=== PATIENT | male | born 1950 | race Caucasian/White ===

== ENCOUNTER 2017-10-27 13:55 | Inpatient (IN) | payer MEDICARE ==
[~2017-10-27] VITALS: Ht 182.8 cm; Wt 110.4 kg
--- NOTE | ~2017-10-27 | EKG ---
[place], [place] ELECTROCARDIOGRAM REPORT NAME: ART DELGADO UNIT #: [id number] ROOM: 411 DOCTOR: TONYA CALDERÓN MD BIRTHDATE: [birth year] DOS: 10/27/2017 TIME: 1430 hours IMPRESSION: 1. Sinus rhythm. 2. Borderline left atrial enlargement. 3. Normal QT interval. TONYA CALDERÓN MD CM:EKGRPT:ELECTROCARDIOGRAM REPORT [id number] TONYA CALDERÓN MD
[~2017-10-27 13:55] MED LIST: ATOXIMETIN-B1 CAP PO; BUSPIRONE10 MG PO; QUINAPRIL HYDRO1 TA3 PO; QUINAPRIL10 MG PO
[2017-10-27 14:01] VITALS: BP 160/85
[2017-10-27 14:40] LABS: BASO # 0.1 10*3/uL (0.0-0.1); BASO % 0.8 % (0.0-1.0); EOS # 0.2 10*3/uL (0.0-0.4); EOS % 2.6 % (1.0-4.0); HEMATOCRIT 40.7 % (42.0-52.0); HEMOGLOBIN 13.8 g/dl (14.0-18.0); LYMPH # 0.9 10*3/uL (1.3-4.4); LYMPH % 14.5 % (27.0-41.0); MEAN CELL VOLUME 85.5 fl (80.0-94.0); MEAN CORPUSCULAR HGB CONC 33.9 g/dl (33.0-37.0); MEAN PLATELET VOLUME 9.2 fl (9.6-12.3); MONO # 0.7 10*3/uL (0.1-1.0); MONO % 11.6 % (3.0-9.0); NEUT # 4.3 10*3/uL (2.3-7.9); NEUT % 70.2 % (47.0-73.0); PLATELET COUNT AUTOMATED 259 10*3/uL (130-400); RED BLOOD COUNT 4.76 10*6/uL (4.50-5.90); RED CELL DISTRI WIDTH 12.4 % (0-14.5); WHITE BLOOD COUNT 6.1 10*3/uL (4.8-10.8)
[2017-10-27 14:47] LABS: INTERNATIONAL NORM RATIO 0.9 (2.0-3.5)
[2017-10-27 15:00] VITALS: BP 148/79
[2017-10-27 15:00] LABS: ALKALINE PHOSPHATASE 54 U/L (45-117); BUN 10 mg/dl (7-24); CHLORIDE 102 mmol/L (98-107); CREATININE 0.89 mg/dL (0.70-1.30); POTASSIUM 3.9 mmol/L (3.5-5.1); SGOT/AST 15 IU/L (3-35); SGPT/ALT 37 U/L (12-78); SODIUM 140 mmol/L (136-145); TOTAL PROTEIN 6.2 gm/dL (6.4-8.2)
[2017-10-27 15:03] LABS: TROPONIN I < 0.015 ng/ml (<0.045)
[2017-10-27 16:12] VITALS: BP 141/71
[2017-10-27] MEDS ORDERED: HYDR25T PO (16:16)
[2017-10-27] MEDS ORDERED: IODINE MC (16:42)
[2017-10-27] MEDS ORDERED: MASON NATURAL600 MG PO (16:43)
[2017-10-27] MEDS ORDERED: FLAX SEED OIL1000 M2 PO (16:44)
[2017-10-27 16:47] VITALS: BP 156/69
[2017-10-27 20:00] VITALS: BP 159/82
[2017-10-28] VITALS: BP 176/82
[2017-10-28 00:35] VITALS: BP 158/90
[2017-10-28 04:00] VITALS: BP 158/90
[2017-10-28 06:10] LABS: BASO # 0.1 10*3/uL (0.0-0.1); BASO % 0.8 % (0.0-1.0); EOS # 0.3 10*3/uL (0.0-0.4); EOS % 4.8 % (1.0-4.0); HEMATOCRIT 38.8 % (42.0-52.0); HEMOGLOBIN 13.2 g/dl (14.0-18.0); LYMPH % 33.4 % (27.0-41.0); MEAN CELL VOLUME 84.7 fl (80.0-94.0); MEAN CORPUSCULAR HGB 28.8 pg (27.0-31.0); MEAN PLATELET VOLUME 9.9 fl (9.6-12.3); MONO # 0.8 10*3/uL (0.1-1.0); MONO % 12.9 % (3.0-9.0); NEUT # 2.8 10*3/uL (2.3-7.9); NEUT % 47.9 % (47.0-73.0); PLATELET COUNT AUTOMATED 265 10*3/uL (130-400); RED BLOOD COUNT 4.58 10*6/uL (4.50-5.90); RED CELL DISTRI WIDTH 12.3 % (0-14.5); WHITE BLOOD COUNT 5.9 10*3/uL (4.8-10.8)
[2017-10-28 06:26] LABS: INTERNATIONAL NORM RATIO 0.9 (2.0-3.5)
[2017-10-28 06:42] LABS: ALBUMIN 2.8 gm/dl (3.1-4.5); ALKALINE PHOSPHATASE 48 U/L (45-117); BUN 8 mg/dl (7-24); CHLORIDE 102 mmol/L (98-107); CHOLESTEROL 167 mg/dL (<200); CREATININE 0.68 mg/dL (0.70-1.30); FREE T4 1.14 ng/dl (0.76-1.46); HDL CHOLESTEROL 62 mg/dl (40-60); LDL CHOLESTEROL 92 mg/dL (9-159); POTASSIUM 3.1 mmol/L (3.5-5.1); SGOT/AST 15 IU/L (3-35); SGPT/ALT 34 U/L (12-78); SODIUM 139 mmol/L (136-145); TRIGLYCERIDES 66 mg/dl (<150); VLDL CHOLESTEROL 13 mg/dL (6-40)
[2017-10-28 06:48] LABS: THYROID STIM HORMONE (HS) 0.023 uIU/ml (0.358-4.75)
[2017-10-28 07:33] LABS: VITAMIN D, 25-HYDROXY 36.2 ng/mL (30-100)
[2017-10-28 08:00] VITALS: BP 160/80
[2017-10-28] MEDS ORDERED: ASPIRIN325 M2 PO ×2 (11:20→11:26)
[2017-10-28] MEDS ORDERED: ATORVASTATIN CA80 M1 PO ×2 (11:22→11:26)
[2017-10-28 12:00] VITALS: BP 150/84
== END 2017-10-28 12:45 | disposition home or self-care (01) | DRG 69 ==
LOC: ED 13:55 → EDHOLD 15:47 → 4E 16:13
PROVIDERS: Hospitalist; Physician Assistant
DX: G45.9 Transient cerebral ischemic attack, unspecified (principal); D64.9 Anemia, unspecified; D72.821 Monocytosis (symptomatic); I10 Essential (primary) hypertension; F32.9 Major depressive disorder, single episode, unspecified; Z87.891 Personal history of nicotine dependence; Z91.048 Other nonmedicinal substance allergy status; Z79.899 Other long term (current) drug therapy; Z98.42 Cataract extraction status, left eye; Z98.41 Cataract extraction status, right eye; Z96.652 Presence of left artificial knee joint

== ENCOUNTER → 2017-10-30 | Outpatient (CLI) | payer MEDICARE ==
[~2017-10-30] MED LIST changes: +ASPIRIN325 M2 PO; +ATORVASTATIN CA80 M1 PO; +FLAX SEED OIL1000 M2 PO; +HYDR25T PO; +IODINE MC; +MASON NATURAL600 MG PO
== END | disposition home or self-care (01) ==
LOC: MRI 13:49
DX: I51.7 Cardiomegaly (principal)

== ENCOUNTER 2019-08-22 15:48 | Inpatient (IN) | payer MEDICARE ==
[~2019-08-22] VITALS: Ht 182.9 cm; Wt 110.4 kg
[2019-08-22 15:51] VITALS: BP 175/74
[2019-08-22 16:13] LABS: BASO # 0.1 10*3/uL (0.0-0.1); BASO % 0.9 % (0.0-1.0); EOS # 0.2 10*3/uL (0.0-0.4); EOS % 3.1 % (1.0-4.0); HEMATOCRIT 43.7 % (42.0-52.0); LYMPH # 1.3 10*3/uL (1.3-4.4); LYMPH % 22.8 % (27.0-41.0); MEAN CELL VOLUME 84.5 fl (80.0-94.0); MEAN CORPUSCULAR HGB CONC 34.3 g/dl (33.0-37.0); MEAN PLATELET VOLUME 9.4 fl (9.6-12.3); MONO # 0.5 10*3/uL (0.1-1.0); MONO % 8.7 % (3.0-9.0); NEUT # 3.5 10*3/uL (2.3-7.9); NEUT % 64.1 % (47.0-73.0); PLATELET COUNT AUTOMATED 247 10*3/uL (130-400); RED BLOOD COUNT 5.17 10*6/uL (4.50-5.90); RED CELL DISTRI WIDTH 12.6 % (0-14.5); WHITE BLOOD COUNT 5.5 10*3/uL (4.8-10.8)
[2019-08-22 16:24] LABS: ACT PARTIAL THROMBO TIME 25.4 SECONDS (20.0-32.1); INTERNATIONAL NORM RATIO 0.9 (2.0-3.5)
[2019-08-22 16:31] LABS: ALBUMIN 3.5 gm/dl (3.1-4.5); ALKALINE PHOSPHATASE 48 U/L (45-117); BUN 10 mg/dl (7-24); CHLORIDE 99 mmol/L (98-107); CREATININE 1.05 mg/dL (0.70-1.30); LIPASE 82 U/L (73-393); POTASSIUM 3.1 mmol/L (3.5-5.1); SGOT/AST 14 IU/L (3-35); SGPT/ALT 46 U/L (12-78); SODIUM 135 mmol/L (136-145); TOTAL PROTEIN 6.8 gm/dL (6.4-8.2)
[2019-08-22 16:42] LABS: TROPONIN I < 0.015 ng/ml (<0.045)
[2019-08-22 16:59] VITALS: BP 126/68
[2019-08-23] VITALS: BP 152/68
--- NOTE | 2019-08-23 | NUR ---
A 69, admitted to 4E, under the services of JANE Parra DO with a diagnosis of SYNCOPE. Chief complaint is FALL/SENT FROM PCP FOR HEART PROBLEMS. Patient arrived via stretcher from ER. Monitor applied. Initial assessment completed. Vital signs taken and recorded. JANE PARRA DO notified of admission to the unit. Orders received. See assessment for past medical history, medications and allergies. Patient and/or family oriented to unit. visitation policy reviewed. Clothing/patient valuable form completed. STEFAN MCGOWAN A
[2019-08-23] MEDS ORDERED: Synthroid,Levo25 MCG PO (00:30)
[2019-08-23] MEDS ORDERED: CARVEDILOL12.5 MG PO (00:31)
[2019-08-23] MEDS ORDERED: FUROSEMIDE40 MG PO (00:31)
--- NOTE | 2019-08-23 00:39 | NUR ---
SPOKE WITH DR. NEGRON IN REGARDS TO EXERCISE STRESS TEST AND PATIENT HAVING BAD KNEES AND MED REC BEING UP TO DATE. NO NEW ORDERS AT THIS TIME.
[2019-08-23] MEDS ORDERED: QUINAPRIL20 MG PO (03:35)
--- NOTE | 2019-08-23 06:17 | NUR ---
ART DELGADO [id number] Please refer to the physician's history and physical for past medical history, comorbid conditions, and allergies. Diagnosis: SYNCOPE Roverto Score: 21,LOW OR NO RISK WOUND DESCRIPTIONS: Wound Number: 1 Location of the wound: Left side of face proximal Type of wound: abrasion Thickness: Partial Size: 5.0cm x 0.1cm x 0.1cm Tunneling: none Undermining: none Sinus Tract: none Presence of Exudate: none Amount: none Color: red Odor: none Periwound Skin Appearance: Normal Wound edges: approximated Pain (associated with wound): none at time of assessment How does patient state this happened? pt stated that he hit it off the cabinet but was joking around saying he is going to blame it on his of many years Wound Number: 1 Location of the wound: Left side of face distal Type of wound: abrasion Thickness: Partial Size: 0.1cm x 1.8cm x 0.1cm Tunneling: none Undermining: none Sinus Tract: none Presence of Exudate: none Amount: none Color: red Odor: none Periwound Skin Appearance: Normal Wound edges: approximated Pain (associated with wound): none at time of assessment How does patient state this happened? pt stated that he hit it off the cabinet but was joking around saying he is going to blame it on his of many years Surface the patient is resting on: Isoflex SKIN PREVENTION RECOMMENDATION: 1. Pressure redistribution support surface as appropriate 2. Elevate heels 3. Remove boots/TEDS every shift and reapply 4. Head of bed 30 degrees as tolerated 5. Assess nutrition and hydration 6. Manage moisture 7. Avoid the use of containment devices while in bed 8. Use absorptive products on surfaces limit layers of linens on bed 9. Turn and reposition every 1-2 hours in bed and every 1 hour in chair as tolerated 10. Weight shifts every 15 minutes while up in chair 11. Offloading with pillows or device to keep heels elevated off bed 12. Monitor skin at least every shift 13. Inspect under medical devices twice a day WOUND TREATMENT RECOMMENDATIONS: Cleanse left side proximal and left side distal with nss and apply sureprep around the wound hydrogel to wound bed and cover with bandaid daily and prn for soiling.
[2019-08-23 06:49] LABS: BUN 10 mg/dl (7-24); CHLORIDE 105 mmol/L (98-107); CHOLESTEROL 205 mg/dL (<200); CREATININE 0.88 mg/dL (0.70-1.30); HDL CHOLESTEROL 67 mg/dl (40-60); LDL CHOLESTEROL 121 mg/dL (9-159); PHOSPHOROUS 3.6 mg/dL (2.5-4.9); POTASSIUM 3.2 mmol/L (3.5-5.1); SODIUM 141 mmol/L (136-145); TRIGLYCERIDES 85 mg/dl (<150); VLDL CHOLESTEROL 17 mg/dL (6-40)
[2019-08-23 06:52] LABS: BASO # 0.1 10*3/uL (0.0-0.1); EOS # 0.3 10*3/uL (0.0-0.4); EOS % 5.5 % (1.0-4.0); HEMATOCRIT 42.7 % (42.0-52.0); HEMOGLOBIN 14.5 g/dl (14.0-18.0); LYMPH # 1.8 10*3/uL (1.3-4.4); LYMPH % 29.4 % (27.0-41.0); MEAN CELL VOLUME 85.1 fl (80.0-94.0); MEAN CORPUSCULAR HGB 28.9 pg (27.0-31.0); MEAN PLATELET VOLUME 9.7 fl (9.6-12.3); MONO # 0.7 10*3/uL (0.1-1.0); MONO % 11.3 % (3.0-9.0); NEUT # 3.2 10*3/uL (2.3-7.9); NEUT % 52.3 % (47.0-73.0); PLATELET COUNT AUTOMATED 255 10*3/uL (130-400); RED BLOOD COUNT 5.02 10*6/uL (4.50-5.90); RED CELL DISTRI WIDTH 12.8 % (0-14.5); WHITE BLOOD COUNT 6.2 10*3/uL (4.8-10.8)
--- NOTE | 2019-08-23 07:46 | NUR ---
Shift chart check completed.
[2019-08-23 08:00] VITALS: BP 128/64
--- NOTE | 2019-08-23 08:28 | NUR ---
PHYSICAL THERAPY Screen received pt from home with syncopal episode please consult PT pending medical intervention and if pt's functional status is impaired/does not improve, thank you Michaela David PT
--- NOTE | 2019-08-23 08:30 | NUR ---
PT TO CARDIAC REHAB FOR ECHO & STRESS TEST
--- NOTE | 2019-08-23 09:00 | NUR ---
Grinder Chipper in to talk to patient. Patient states lives at home with . There are no steps in the home. Physician: shanelle Pharmacy: Home health services: none Patient's level of ADLs: INDEPENDENT Patient has working utilities: all working DME: none Follow-up physician's appointment after d/c: will be made by hospitalist nurse director upon discharge Does patient want to access PORTAL?: no Discharge plan discussed with patient, he lives at home with , he is independent in adls and ambulation, he states he will return home when medically stable and denies any home needs. ANTIONETTE ALEJANDRO
[2019-08-23 09:09] LABS: VITAMIN D, 25-HYDROXY 31.9 ng/mL (30-100)
--- NOTE | 2019-08-23 09:26 | NUR ---
Dr. Scherer notified of wound care recommendations.
--- NOTE | 2019-08-23 09:35 | NUR ---
Nursing screen received and chart reviewed. Patient hospitalized with increased dizziness, blacking out and hit head. Consider Occupational Therapy evaluation after medical management as indicated for d/c planning. Thank you Mary Ordaz OTR/l
--- NOTE | 2019-08-23 10:30 | NUR ---
INFORMED CONSENT OBTAINED FOR LEXISCAN NUCLEAR STRESS TEST WITH DR. RESTREPO. RESTING EKG NSR WITH A RESTING HR OF 72 WITH BP OF 140/74. LUNGS CLEAR WITH DIMINISHED BS WITH SPO2 OF 97% ON ROOM AIR. PT COMPLETED A 1:00 LEXISCAN PROTOCOL RECEIVING LEXISCAN 0.4 MG IV OVER 10 SECONDS. HAD NO CHEST PAIN OR ANY EKG CHANGES. HAD C/O NAUSEA AND "ARMS FELT HEAVY" THAT WAS RELIEVED IN RECOVERY. HAD A PEAK HR OF 97 WITH BP OF 120/60. LAST RECOVERY HR OF 91 WITH BP OF 124/80. AWAITING SCANNING IN STABLE CONDITION.
--- NOTE | 2019-08-23 11:41 | NUR ---
PT [facility]
[2019-08-23 16:00] VITALS: BP 174/73
--- NOTE | 2019-08-23 16:11 | NUR ---
Nutritional Support Services Note: Pt has a scabbed laceration to left cheek, states he got it from hitting the cabinet at home. He is eating 100% of meals. No nutrition intervention is needed at this time. Encouraged continued good intake of meals. Sarah Joya Rdn Ld
--- NOTE | 2019-08-23 17:44 | NUR ---
Hep Lock discontinued. Site asymptomatic. Pressure applied. Sterile dressing applied. METAL BUMPER REMOVED - Discharge instructions reviewed with patient/family. Patient receptive and verbalizes understanding. Follow-up care arranged. Written instructions given to patient/family. ASPEN HEDRICK
--- NOTE | 2019-08-23 18:06 | NUR ---
NO DISCHARGE PICTURES TAKEN PT REQUESTED DRESSING NOT BE REMOVED D/T PULLING HAIR & JUST DRESSED @ 1400
--- NOTE | 2019-08-23 18:29 | NUR ---
PATIENT TAKEN OUT VIA WHEEL CHAIR WITH ALL BELONGINGS PER PT
== END 2019-08-23 18:29 | disposition home or self-care (01) | DRG 641 ==
LOC: ED 15:48 → 4E 18:47 → EDHOLD 18:47 → 4E 22:37
PROVIDERS: Emergency Medicine; Internal Medicine; ADMIT Internal Medicine
PROC: 4A02XM4 Measurement of Cardiac Total Activity, External Approach (ICD-10-PCS; principal; 2019-08-23)
PROC: 3E073KZ Introduction of Other Diagnostic Substance into Coronary Artery, Percutaneous Approach (ICD-10-PCS; principal; 2019-08-23)
DX: E87.6 Hypokalemia (principal); R55 Syncope and collapse; E87.1 Hypo-osmolality and hyponatremia; F32.9 Major depressive disorder, single episode, unspecified; I10 Essential (primary) hypertension; E78.5 Hyperlipidemia, unspecified; E03.9 Hypothyroidism, unspecified; R73.9 Hyperglycemia, unspecified; Z96.652 Presence of left artificial knee joint; E66.9 Obesity, unspecified; Z86.73 Personal history of transient ischemic attack (TIA), and cerebral infarction without residual deficits; Z98.42 Cataract extraction status, left eye; Z98.41 Cataract extraction status, right eye; Z87.891 Personal history of nicotine dependence; Z82.49 Family history of ischemic heart disease and other diseases of the circulatory system; Z80.8 Family history of malignant neoplasm of other organs or systems; Z91.09 Other allergy status, other than to drugs and biological substances; Z79.899 Other long term (current) drug therapy; Z68.33 Body mass index [BMI] 33.0-33.9, adult

== ENCOUNTER 2020-07-30 13:07 | Emergency (ER) | payer MEDICARE ==
[~2020-07-30 13:07] MED LIST changes: +CARVEDILOL12.5 MG PO; +FUROSEMIDE40 MG PO; +QUINAPRIL20 MG PO; +Synthroid,Levo25 MCG PO
[2020-07-30 13:46] LABS: BASO # 0.1 10*3/uL (0.0-0.1); BASO % 0.8 % (0.0-1.0); EOS # 0.2 10*3/uL (0.0-0.4); EOS % 3.5 % (1.0-4.0); LYMPH # 1.4 10*3/uL (1.3-4.4); LYMPH % 20.9 % (27.0-41.0); MEAN CELL VOLUME 85.1 fl (80.0-94.0); MEAN CORPUSCULAR HGB 28.8 pg (27.0-31.0); MEAN CORPUSCULAR HGB CONC 33.9 g/dl (33.0-37.0); MONO # 0.8 10*3/uL (0.1-1.0); MONO % 11.4 % (3.0-9.0); NEUT # 4.2 10*3/uL (2.3-7.9); NEUT % 62.9 % (47.0-73.0); PLATELET COUNT AUTOMATED 233 10*3/uL (130-400); RED BLOOD COUNT 4.82 10*6/uL (4.50-5.90); RED CELL DISTRI WIDTH 12.4 % (0-14.5); WHITE BLOOD COUNT 6.7 10*3/uL (4.8-10.8)
[2020-07-30 13:57] LABS: INTERNATIONAL NORM RATIO 0.9 (2.0-3.5)
[2020-07-30 14:02] LABS: ALBUMIN 3.3 gm/dl (3.1-4.5); ALKALINE PHOSPHATASE 43 U/L (45-117); BUN 12 mg/dl (7-24); CHLORIDE 94 mmol/L (98-107); CREATININE 1.13 mg/dL (0.70-1.30); LIPASE 80 U/L (73-393); POTASSIUM 3.1 mmol/L (3.5-5.1); SGOT/AST 14 IU/L (3-35); SGPT/ALT 45 U/L (12-78); SODIUM 132 mmol/L (136-145); TOTAL PROTEIN 6.4 gm/dL (6.4-8.2)
[2020-07-30 14:12] LABS: TROPONIN I < 0.015 ng/ml (<0.045)
[2020-07-30 14:45] LABS: BILIRUBIN Negative (Negative); BLOOD Negative (Negative); CLARITY Clear (Clear); COLOR Yellow (Yellow); GLUCOSE Negative (Negative); KETONE Negative (Negative); LEUKO ESTERASE Negative (Negative); NITRITE Negative (Negative); PH 7.5 (4.5-8.0); SPECIFIC GRAVITY 1.015 (1.001-1.030)
[2020-07-30 14:59] LABS: BACTERIA TRACE; EPITHELIAL CELLS 0-2; HYALINE CAST 31-40; WBC 0-2 wbc/hpf (0-5)
== END 2020-07-30 16:57 | disposition home or self-care (01) ==
LOC: ED 13:07
PROVIDERS: Physician Assistant
DX: R61 Generalized hyperhidrosis (principal); Z79.899 Other long term (current) drug therapy

== ENCOUNTER 2020-12-20 12:56 | Inpatient (IN) | payer MEDICARE ==
[2020-12-20] VITALS (11 sets, daily range): BP systolic 68–137; BP diastolic 00–69
[~2020-12-20] VITALS: Ht 182.9 cm; Wt 118.2 kg
[2020-12-20 13:18] LABS: BASO # 0.1 10*3/uL (0.0-0.1); BASO % 1.2 % (0.0-1.0); EOS # 0.3 10*3/uL (0.0-0.4); EOS % 4.8 % (1.0-4.0); HEMATOCRIT 35.3 % (42.0-52.0); LYMPH # 1.4 10*3/uL (1.3-4.4); LYMPH % 23.8 % (27.0-41.0); MEAN CELL VOLUME 86.1 fl (80.0-94.0); MEAN CORPUSCULAR HGB 29.3 pg (27.0-31.0); MEAN PLATELET VOLUME 9.5 fl (9.6-12.3); MONO # 0.9 10*3/uL (0.1-1.0); MONO % 14.9 % (3.0-9.0); NEUT # 3.2 10*3/uL (2.3-7.9); PLATELET COUNT AUTOMATED 209 10*3/uL (130-400); RED CELL DISTRI WIDTH 12.9 % (0-14.5); WHITE BLOOD COUNT 5.8 10*3/uL (4.8-10.8)
[2020-12-20 13:31] LABS: ACT PARTIAL THROMBO TIME 24.1 SECONDS (20.0-32.1)
[2020-12-20 13:35] LABS: ALBUMIN 3.2 gm/dl (3.1-4.5); ALKALINE PHOSPHATASE 36 U/L (45-117); BUN 16 mg/dl (7-24); CHLORIDE 95 mmol/L (98-107); CREATININE 1.49 mg/dL (0.70-1.30); POTASSIUM 2.9 mmol/L (3.5-5.1); SGOT/AST 16 IU/L (3-35); SGPT/ALT 40 U/L (12-78); SODIUM 134 mmol/L (136-145); TOTAL PROTEIN 6.1 gm/dL (6.4-8.2)
[2020-12-20 13:36] LABS: TROPONIN I < 0.015 ng/ml (<0.045)
[2020-12-20] MEDS ORDERED: BUMETANIDE2 MG PO (18:58)
[2020-12-20] MEDS ORDERED: PROZAC20 MG PO (22:36)
[2020-12-20 23:01] LABS: BILIRUBIN Negative (Negative); BLOOD Negative (Negative); CLARITY Clear (Clear); COLOR Yellow (Yellow); GLUCOSE Negative (Negative); KETONE Negative (Negative); LEUKO ESTERASE Negative (Negative); NITRITE Negative (Negative); PH 7.5 (4.5-8.0); SPECIFIC GRAVITY 1.015 (1.001-1.030)
[2020-12-20 23:10] LABS: HYALINE CAST 31-40
[2020-12-20 23:11] LABS: RBC 0-2 rbc/hpf (0-2); WBC 0-2 wbc/hpf (0-5)
[2020-12-21] VITALS: BP 135/63
[2020-12-21 04:00] VITALS: BP 153/81
[2020-12-21 06:23] LABS: BASO # 0.1 10*3/uL (0.0-0.1); BASO % 0.8 % (0.0-1.0); EOS # 0.3 10*3/uL (0.0-0.4); EOS % 5.4 % (1.0-4.0); HEMATOCRIT 36.4 % (42.0-52.0); LYMPH # 1.4 10*3/uL (1.3-4.4); MEAN CELL VOLUME 85.6 fl (80.0-94.0); MEAN CORPUSCULAR HGB 29.2 pg (27.0-31.0); MEAN CORPUSCULAR HGB CONC 34.1 g/dl (33.0-37.0); MONO # 0.7 10*3/uL (0.1-1.0); MONO % 12.5 % (3.0-9.0); NEUT # 3.4 10*3/uL (2.3-7.9); PLATELET COUNT AUTOMATED 201 10*3/uL (130-400); RED BLOOD COUNT 4.25 10*6/uL (4.50-5.90); RED CELL DISTRI WIDTH 12.9 % (0-14.5); WHITE BLOOD COUNT 5.9 10*3/uL (4.8-10.8)
[2020-12-21 06:33] LABS: BUN 12 mg/dl (7-24); CHLORIDE 96 mmol/L (98-107); POTASSIUM 2.8 mmol/L (3.5-5.1); SODIUM 135 mmol/L (136-145)
[2020-12-21 08:00] VITALS: BP 156/71
[2020-12-21 12:00] VITALS: BP 149/60
[2020-12-21 12:16] LABS: BUN 11 mg/dl (7-24); CHLORIDE 98 mmol/L (98-107); CREATININE 0.88 mg/dL (0.70-1.30); POTASSIUM 3.2 mmol/L (3.5-5.1); SODIUM 134 mmol/L (136-145)
[2020-12-21 16:00] VITALS: BP 154/67
[2020-12-21 20:00] VITALS: BP 138/72
[2020-12-22] VITALS: BP 148/70
[2020-12-22 06:48] LABS: BUN 11 mg/dl (7-24); CHLORIDE 103 mmol/L (98-107); CREATININE 0.81 mg/dL (0.70-1.30); POTASSIUM 3.2 mmol/L (3.5-5.1); SODIUM 137 mmol/L (136-145)
[2020-12-22 08:00] VITALS: BP 125/74
[2020-12-22 12:00] VITALS: BP 106/58
[2020-12-22 16:00] VITALS: BP 161/76
[2020-12-22 20:00] VITALS: BP 160/81
[2020-12-23] VITALS: BP 146/62
[2020-12-23 06:03] LABS: BUN 13 mg/dl (7-24); CHLORIDE 101 mmol/L (98-107); CREATININE 0.86 mg/dL (0.70-1.30); POTASSIUM 3.2 mmol/L (3.5-5.1); SODIUM 136 mmol/L (136-145)
[2020-12-23 08:04] VITALS: BP 155/51
[2020-12-23] MEDS ORDERED: BUMETANIDE0.5 MG PO (10:29)
[2020-12-23] MEDS ORDERED: KLOR-CON M2020 ME1 PO (10:32)
== END 2020-12-23 12:21 | disposition home or self-care (01) | DRG 314 ==
LOC: ED 12:56 → EDHOLD 14:56 → ICCU 14:56
PROVIDERS: Surgery; ADMIT Internal Medicine; ATTEND Internal Medicine
DX: I95.9 Hypotension, unspecified (principal); N17.0 Acute kidney failure with tubular necrosis; F33.0 Major depressive disorder, recurrent, mild; I13.0 Hypertensive heart and chronic kidney disease with heart failure and stage 1 through stage 4 chronic kidney disease, or unspecified chronic kidney disease; I50.32 Chronic diastolic (congestive) heart failure; E87.1 Hypo-osmolality and hyponatremia; E87.6 Hypokalemia; E66.01 Morbid (severe) obesity due to excess calories; E78.2 Mixed hyperlipidemia; E03.9 Hypothyroidism, unspecified; R55 Syncope and collapse; R73.9 Hyperglycemia, unspecified; R61 Generalized hyperhidrosis; R00.1 Bradycardia, unspecified; Z96.652 Presence of left artificial knee joint; N18.30 Chronic kidney disease, stage 3 unspecified; M17.11 Unilateral primary osteoarthritis, right knee; E86.0 Dehydration; E86.1 Hypovolemia; T50.2X5A Adverse effect of carbonic-anhydrase inhibitors, benzothiadiazides and other diuretics, initial encounter; Y92.89 Other specified places as the place of occurrence of the external cause; Z91.048 Other nonmedicinal substance allergy status; Z98.42 Cataract extraction status, left eye; Z98.41 Cataract extraction status, right eye; Z87.891 Personal history of nicotine dependence; Z83.3 Family history of diabetes mellitus; Z82.49 Family history of ischemic heart disease and other diseases of the circulatory system; Z80.9 Family history of malignant neoplasm, unspecified; Z86.73 Personal history of transient ischemic attack (TIA), and cerebral infarction without residual deficits; Z68.35 Body mass index [BMI] 35.0-35.9, adult

== ENCOUNTER → 2020-12-26 | Outpatient (CLI) | payer MEDICARE ==
[~2020-12-26] MED LIST changes: +BUMETANIDE0.5 MG PO; +BUMETANIDE2 MG PO; +KLOR-CON M2020 ME1 PO; +PROZAC20 MG PO
[2020-12-26 13:20] LABS: HEMATOCRIT 38.8 % (42.0-52.0); MEAN CELL VOLUME 87.6 fl (80.0-94.0); MEAN CORPUSCULAR HGB 29.8 pg (27.0-31.0); MEAN PLATELET VOLUME 9.6 fl (9.6-12.3); RED BLOOD COUNT 4.43 10*6/uL (4.50-5.90); RED CELL DISTRI WIDTH 13.1 % (0-14.5); WHITE BLOOD COUNT 5.5 10*3/uL (4.8-10.8)
[2020-12-26 13:35] LABS: ALBUMIN 3.7 gm/dl (3.1-4.5); ALKALINE PHOSPHATASE 46 U/L (45-117); BUN 10 mg/dl (7-24); CHLORIDE 99 mmol/L (98-107); SGOT/AST 16 IU/L (3-35); SGPT/ALT 46 U/L (12-78); SODIUM 135 mmol/L (136-145); TOTAL PROTEIN 7.4 gm/dL (6.4-8.2)
== END | disposition home or self-care (01) ==
LOC: LAB 12:33
PROVIDERS: ATTEND Family Medicine
DX: E87.1 Hypo-osmolality and hyponatremia (principal); E87.6 Hypokalemia

== ENCOUNTER 2020-12-30 17:02 | Emergency (ER) | payer MEDICARE ==
[~2020-12-30] VITALS: Ht 182.8 cm; Wt 117.9 kg
[2020-12-30 17:59] LABS: BASO # 0.1 10*3/uL (0.0-0.1); BASO % 0.9 % (0.0-1.0); EOS # 0.3 10*3/uL (0.0-0.4); EOS % 5.4 % (1.0-4.0); HEMATOCRIT 35.5 % (42.0-52.0); LYMPH # 1.2 10*3/uL (1.3-4.4); LYMPH % 21.7 % (27.0-41.0); MEAN CORPUSCULAR HGB 29.9 pg (27.0-31.0); MEAN CORPUSCULAR HGB CONC 34.4 g/dl (33.0-37.0); MEAN PLATELET VOLUME 9.5 fl (9.6-12.3); MONO # 0.8 10*3/uL (0.1-1.0); MONO % 14.1 % (3.0-9.0); NEUT # 3.1 10*3/uL (2.3-7.9); NEUT % 57.3 % (47.0-73.0); PLATELET COUNT AUTOMATED 268 10*3/uL (130-400); RED BLOOD COUNT 4.08 10*6/uL (4.50-5.90); RED CELL DISTRI WIDTH 13.1 % (0-14.5); WHITE BLOOD COUNT 5.4 10*3/uL (4.8-10.8)
[2020-12-30 18:17] LABS: ALBUMIN 2.9 gm/dl (3.1-4.5); BUN 9 mg/dl (7-24); CHLORIDE 102 mmol/L (98-107); CREATININE 1.06 mg/dL (0.70-1.30); POTASSIUM 3.6 mmol/L (3.5-5.1); SGOT/AST 15 IU/L (3-35); SGPT/ALT 39 U/L (12-78); SODIUM 132 mmol/L (136-145); TOTAL PROTEIN 6.2 gm/dL (6.4-8.2)
[2020-12-30 18:19] LABS: ALKALINE PHOSPHATASE 41 U/L (45-117)
[2020-12-30 18:20] LABS: TROPONIN I < 0.015 ng/ml (<0.045)
[2020-12-30 20:46] LABS: BILIRUBIN Negative (Negative); BLOOD Negative (Negative); CLARITY Clear (Clear); COLOR Yellow (Yellow); GLUCOSE Negative (Negative); KETONE Negative (Negative); LEUKO ESTERASE Negative (Negative); NITRITE Negative (Negative); PH 7.5 (4.5-8.0); SPECIFIC GRAVITY <= 1.005 (1.001-1.030)
[2020-12-30 20:55] LABS: EPITHELIAL CELLS 0-2; RBC 0-2 rbc/hpf (0-2); WBC 0-2 wbc/hpf (0-5)
== END 2020-12-30 21:17 | disposition home or self-care (01) ==
LOC: ED 17:02
PROVIDERS: Physician Assistant
DX: R42 Dizziness and giddiness (principal); Z79.899 Other long term (current) drug therapy; Z98.890 Other specified postprocedural states

== ENCOUNTER → 2022-05-25 | Outpatient (CLI) | payer OTHER ==
[~2022-05-25] MED LIST changes: +ALDACTONE25 M1 PO; +FINASTERIDE5 M1 PO; +HYDROCODONE-AC1 EAC1 PO; +LYRICA150 M1 PO; +MELOXICAM7.5 MG PO; +NEURONTIN300 MG PO; +SERTRALINE HYDR50 MG PO
== END | disposition home or self-care (01) ==
LOC: US 13:00
PROVIDERS: ATTEND Podiatrist
DX: R60.9 Edema, unspecified (principal); M79.604 Pain in right leg

== ENCOUNTER 2022-06-06 13:57 | Emergency (ER) | payer OTHER ==
[~2022-06-06] VITALS: Ht 182.8 cm; Wt 122.5 kg
[2022-06-06 14:50] LABS: BASO # 0.1 10*3/uL (0.0-0.1); BASO % 1.2 % (0.0-1.0); EOS # 0.4 10*3/uL (0.0-0.4); EOS % 6.3 % (1.0-4.0); LYMPH # 0.9 10*3/uL (1.3-4.4); LYMPH % 15.2 % (27.0-41.0); MEAN CELL VOLUME 90.9 fl (80.0-94.0); MEAN CORPUSCULAR HGB 30.5 pg (27.0-31.0); MEAN CORPUSCULAR HGB CONC 33.5 g/dl (33.0-37.0); MEAN PLATELET VOLUME 9.7 fl (9.6-12.3); MONO # 0.6 10*3/uL (0.1-1.0); MONO % 9.2 % (3.0-9.0); NEUT # 4.1 10*3/uL (2.3-7.9); NEUT % 67.6 % (47.0-73.0); PLATELET COUNT AUTOMATED 223 10*3/uL (130-400); RED CELL DISTRI WIDTH 12.5 % (0-14.5)
[2022-06-06 15:23] LABS: ALKALINE PHOSPHATASE 48 U/L (45-117); BUN 14 mg/dl (7-24); CHLORIDE 98 mmol/L (98-107); CREATININE 1.21 mg/dL (0.70-1.30); SGOT/AST 17 IU/L (3-35); SGPT/ALT 40 U/L (12-78); SODIUM 132 mmol/L (136-145); TOTAL PROTEIN 6.4 gm/dL (6.4-8.2)
== END 2022-06-06 16:54 | disposition home or self-care (01) ==
LOC: ED 13:57
PROVIDERS: Family Medicine
DX: I95.9 Hypotension, unspecified (principal); Z87.891 Personal history of nicotine dependence; Z98.890 Other specified postprocedural states; Z79.899 Other long term (current) drug therapy

== ENCOUNTER 2022-07-26 16:40 | Emergency (ER) | payer OTHER | END 2022-07-26 16:50 | disposition left against medical advice (07) | LOC: ED 16:40 | DX: Z76.89 Persons encountering health services in other specified circumstances (principal); Z53.21 Procedure and treatment not carried out due to patient leaving prior to being seen by health care provider ==

== ENCOUNTER 2024-10-18 23:19 | Emergency (ER) | payer MEDICARE ==
[~2024-10-18] VITALS: Ht 182.8 cm; Wt 106.6 kg
[2024-10-19] MEDS ORDERED: SODIUM CHLORIDE 0.9% 1,000 ML IV ONE (00:05)
[2024-10-19 00:30] LABS: BASO # 0.1 10*3/uL (0.0-0.1); BASO % 0.9 % (0.0-1.0); EOS # 0.2 10*3/uL (0.0-0.4); EOS % 1.7 % (1.0-4.0); HEMATOCRIT 39.7 % (42.0-52.0); MEAN CELL VOLUME 87.6 fl (80.0-94.0); MEAN CORPUSCULAR HGB 28.9 pg (27.0-31.0); MEAN PLATELET VOLUME 9.8 fl (9.6-12.3); MONO # 0.7 10*3/uL (0.1-1.0); MONO % 8.1 % (3.0-9.0); NEUT # 6.7 10*3/uL (2.3-7.9); NEUT % 77.1 % (47.0-73.0); PLATELET COUNT AUTOMATED 228 10*3/uL (130-400); RED BLOOD COUNT 4.53 10*6/uL (4.50-5.90); RED CELL DISTRI WIDTH 12.6 % (0-14.5); WHITE BLOOD COUNT 8.7 10*3/uL (4.8-10.8)
[2024-10-19 00:52] LABS: ALKALINE PHOSPHATASE 42 U/L (46-116); BUN 15 mg/dl (9-23); CHLORIDE 99 mmol/L (98-107); POTASSIUM 3.6 mmol/L (3.4-5.1); SGPT/ALT 82 U/L (5-49); TOTAL PROTEIN 6.5 gm/dL (6.0-8.0)
[2024-10-19] MEDS ORDERED: LACTULOSE 20 GM/30 ML UDC PO ONE (01:05)
[2024-10-19] MEDS ORDERED: MAGNESIUM CITRATE 296 ML BOT PO ONE (01:05)
[2024-10-19] MEDS ORDERED: MIRALAX POWDER17 G1 PO (01:58)
== END 2024-10-19 02:06 | disposition home or self-care (01) ==
LOC: ED 23:19
PROVIDERS: Internal Medicine
DX: K59.00 Constipation, unspecified (principal); R10.9 Unspecified abdominal pain; I11.0 Hypertensive heart disease with heart failure; I50.9 Heart failure, unspecified; Z91.048 Other nonmedicinal substance allergy status; Z79.899 Other long term (current) drug therapy; Z96.652 Presence of left artificial knee joint; Z98.890 Other specified postprocedural states; Z87.891 Personal history of nicotine dependence